=== PATIENT | female | born 1960 | race Caucasian/White ===

== ENCOUNTER → 2020-09-16 | Outpatient (CLI) | payer OTHER ==
[2020-09-16 07:34] LABS: CREATININE 0.9 mg/dL (0.6-1.3)
--- NOTE | 2020-09-16 17:10 | CARDNUC ---
[place] [address] CARDIAC NUCLEAR IMAGING REPORT Name: PIERRE BYRD Room: [facility]#: [id number] Admission: 09/16/20 Attend Phys: Eleazar Newman, Discharge: Date of : 56 Date of Service: 09/16/20 1710 Report #: [id number] THIS REPORT FOR: cc: Eleni Mccrary MD, Emily G. MD Liston, Michael J. MD [facility] ~ APPROVED REPORT Study performed: 09/16/2020 09:39:44 Indication: Chest pain, Dyspnea, Lightheaded, Tachycardia, Cardiomyopathy. Patient Location: Out-Patient Stress Tech: Lilly Zhao Stress Nurse: Alice Samano RN Ht: 5 ft 4 in Wt: 123 lbs BSA: 1.59 m2 BMI: 21.11 Medical History Medical History: Angina, Dyspnea, Lightheadedness, Tachycardia, Bradycardia, Cardiomyopathy, ABN CT Heart Scan, Carotid Stenosis, Angioedema, Pulmonary Nodules, HTN, HLD, CAD, Current smoker. Medications: Amlodipine, Atorvastatin, ASA 81 Mg. Allergies: Levofloxacin, Lorazepam, Amoxicillinl, Diphenhydramine, adhesive, ASA, Codeine, fentanyl, lisinopril, Methylprednisolone, Metronidazole , Morphine, Quinolones. Cardiac Risk Factors: Age, Current Smoker, FHX of CAD, HTN, Hyperlipidemia, SOB, Tobacco History (Current/Recent), ABN CT Heart Scan, Tachycardia. Previous Cardiac Procedures: None Pretest Chest Pain Characteristics: No chest pain Exercise History: Indeterminate Physical Disabilities: Patient states she is uncoordinated and unstable walking fast. Meds Held (24 hrs): Amlodipine. Resting Data Rest SPECT myocardial perfusion imaging was performed in supine position 30 minutes following the intravenous injection of 10.6 mCi of Tc-99m Sestamibi. Time of rest injection: 07:35 The images were gated to evaluate regional [place] [address] CARDIAC NUCLEAR IMAGING REPORT Name: PIERRE BYRD Room: [facility]#: [id number] Admission: 09/16/20 Attend Phys: Eleazar Newman, Discharge: Date of : 56 Date of Service: 09/16/20 1710 Report #: [id number] left ventricular ejection fraction. Administration Route: IV Administration Site: Right AC Exercise Stress At peak stress, the patient was injected intravenously with 32.0mCi of Tc-99m Sestamibi. Time of stress injection: 09:45 Administration Route: IV Administration Site: Right AC Heart Rate at time of stress injection: 174 bpm. Patient continued to exercise for 1 minute(s). Gated Stress SPECT was performed 30 minutes after stress injection. The images were gated to evaluate regional wall motion and calculate left ventricular ejection fraction. Prone imaging was performed. Stress Test Details Stress Test: Exercise stress testing was performed using a Jose protocol. HR Max Heart Rate (APMHR): 158 bpm Resting HR: 55 bpm Target HR (85% APMHR): 134 bpm Max HR Achieved: 174 bpm % of APMHR: 110 Recovery HR: 66 bpm BP Resting BP: 130/77 mmHg Max BP: 204/70 mmHg Recovery BP: 139/76 mmHg ECG Resting ECG: Sinus Rhythm Stress ECG: Sinus Tachycardia ST Change: Upsloping ST depression Maximum ST Deviation: 0.5 mm Arrhythmia: None Recovery ECG: Sinus Rhythm Recovery ST Change: Upsloping ST depression Recovery ST Deviation: 0.5 mm Recovery Arrhythmia: None Clinical Reason for Termination: Completed protocol, Maximal effort, [place] [address] CARDIAC NUCLEAR IMAGING REPORT Name: PIERRE BYRD Room: [facility]#: [id number] Admission: 09/16/20 Attend Phys: Eleazar Newman, Discharge: Date of : 56 Date of Service: 09/16/20 1710 Report #: [id number] Stress Symptoms: Dyspnea, Leg Fatigue. Exercise duration: 11 min 00 sec Exercise capacity: 13.45 METs Overall Exercise Capacity for Age: Superior The patient exhibited excellent exercise tolerance on established protocol. There were no symptoms to suggest angina. Nurse Comments A 60 year old female presented for a treadmill Nuclear Stress Test r/t chest pain, dyspnea, cardiomyopathy, ABN CT Heart scan. Treadmill tolerated to Stage 4. Recovery unremarkable. Patient was stable and stated she felt good when escorted to Nuclear Medicine for imaging. Stress ECG Conclusion Baseline twelve-lead EKG shows sinus rhythm without significant ST segment or T wave abnormality. EKGs obtained during and post exercise shows sinus rhythm and sinus tachycardia with 0.[address] segment depression at peak exercise. There were no stress-induced arrhythmias. The patient did develop a rate dependent bundle branch block that resolved in recovery. Study Quality Study: Good Artifact: Mild Breast artifact Study Data At rest, the left ventricular ejection fraction was 76%.. Post stress, the left ventricular ejection was 74%.. TID = 0.97. Perfusion Perfusion study show photopenia in the anterior wall and supine positions it resolves with post-rest prone imaging suggesting breast attenuation artifact. No other significant fixed or reversible defects are identified. Wall Motion Normal left ventricular wall motion. Nuclear Conclusion ECG Findings: negative for ischemia Clinical Findings: negative for ischemia Nuclear Findings: negative for ischemia Exercise Capacity: normal Left Ventricular Function: [place] [address] CARDIAC NUCLEAR IMAGING REPORT Name: PIERRE BYRD Room: [facility]#: [id number] Admission: 09/16/20 Attend Phys: Eleazar Newman, Discharge: Date of : 56 Date of Service: 09/16/20 1710 Report #: [id number] Risk Study: low There were no defects to suggest infarct or ischemia. Left ventricular systolic function appeared normal on gated studies. This is a low risk study. <Conclusion> Baseline twelve-lead EKG shows sinus rhythm without significant ST segment or T wave abnormality. EKGs obtained during and post exercise shows sinus rhythm and sinus tachycardia with 0.[address] segment depression at peak exercise. There were no stress-induced arrhythmias. The patient did develop a rate dependent bundle branch block that resolved in recovery. <ELECTRONICALLY SIGNED> By: Cl Natarajan MD, FACC 09/16/201709 09 09 Cl Natarajan MD, FACC /INF
== END ==
LOC: M.CT 08-28 14:16 → M.LAB 09-05 13:00 → M.CRD 09-05 13:00 → M.NUC 09-05 13:00
PROVIDERS: ATTEND Internal Medicine
DX: J43.9 Emphysema, unspecified (principal); R91.8 Other nonspecific abnormal finding of lung field; I42.0 Dilated cardiomyopathy; I25.10 Atherosclerotic heart disease of native coronary artery without angina pectoris; R93.1 Abnormal findings on diagnostic imaging of heart and coronary circulation; I10 Essential (primary) hypertension; E78.5 Hyperlipidemia, unspecified; Z79.899 Other long term (current) drug therapy; Z79.82 Long term (current) use of aspirin; Z87.891 Personal history of nicotine dependence